=== PATIENT | male | born 1955 | race Caucasian/White ===

== ENCOUNTER 2019-04-05 18:23 | Observation (INO) ==
--- NOTE | 2019-04-05 18:42 | Emergency Department Note ---
Disposition Clinical Impression: Chest pain Qualifiers: Chest pain type: unspecified Qualified Code(s): R07.9 - Chest pain, unspecified Disposition: Admitted As Inpatient Condition: Good Time of Disposition: 18:44 General Adult HPI - General Stated complaint: cp Time Seen by Provider: 04/05/19 18:30 Source: patient Mode of arrival: ambulatory Limitations: no limitations Nursing Notes Reviewed: Yes Vital Signs Reviewed: Yes - History of Present Illness HPI Narrative: Patient presenting to the hospital for evaluation of left-sided chest pain. Patient describes a left-sided dull ache that started approximately an hour and half prior to arrival while sitting in a recliner. Patient states he has had intermittent chest pains of been sharp and always gone away with no previous diagnosis. Patient's chest pain today is different than prior. Nothing has mad e it better or worse. Patient described tongue numbness but no other symptoms and this last for seconds. The patient was recently diagnosed with diabetes today and was prescribed metformin but has not picked this up from the pharmacy. Patient states he has been taking terbinafine for "toe fungus". Patient has not been diagnosed with hypertension or hypercholesterol or other. Patient states he underwent a stress test many years ago which was negative but has not had any recent workup or testing. Patient has a moderate story, nonspecific ST changes, 1-2 risk factors and likely initial negative troponin putting him at a heart score of 5. Patient will require admission for further workup and testing. - Related Data Home Medications Medication Instructions Recorded Confirmed Multivitamin [Multivitamins] 1 each PO DAILY 04/05/19 04/05/19 Terbinafine HCl 250 mg PO DAILY 04/05/19 04/05/19 Previous Rx's Medication Instructions Recorded Aspirin Enteric Coated [Aspirin EC] 81 mg PO DAILY #30 tablet. 04/06/19 Atorvastatin Calcium [Lipitor] 20 mg PO HS #30 tablet 04/06/19 Metoprolol [Lopressor] 25 mg PO BID #60 tablet 04/06/19 Allergies Allergy/AdvReac Type Severity Reaction Status Date / Time No Known Allergies Allergy Verified 04/05/19 19:50 Review of Systems: CONSTITUTIONAL: No weight loss, fever, chills, weakness or fatigue. HEENT: Eyes: No visual changes. Ears, Nose, Throat: Tongue numbness No hearing loss, difficulty talking or unable to swallow. SKIN: No rash or itching. CARDIOVASCULAR: Chest pain RESPIRATORY: No shortness of breath, cough or sputum. GASTROINTESTINAL: No anorexia, nausea, vomiting or diarrhea. No abdominal pain or blood. GENITOURINARY: No burning on urination or hematuria. NEUROLOGICAL: No headache, dizziness, syncope, paralysis, ataxia, numbness or tingling in the extremities. No change in bowel or bladder control. MUSCULOSKELETAL: No muscle pain, back pain, joint pain or stiffness. Physical Exam General: Well appearing, nontoxic, no acute distress Head: Normocephalic Atraumatic Eyes: PERRL, EOMI ENT: Airway patent, no stridor Neck: supple, no meningismus Chest: Lungs clear to auscultation bilateral Cardiac: Regular rate and rhythm, no murmurs, rubs or gallops Abdomen: soft, nontender, nondistended; no guarding, rebound, or tenderness to percussion Musculoskeletal: Calves symmetric, nontender. Skin: No rash, normal skin tone. Neuro: Alert and Oriented to person, place, and time; No obvious focal deficit. Course - Reevaluation(s) Reevaluation #1: Patient is chest pain-free after 2 hours of observation with the emergency department. Aspirin given. Patient with slightly atypical symptoms but heart score of 5. Patient will be admitted for serial troponin and likely stress test. Vital Signs Temperature 98.2 F 04/05/19 18:34 Pulse Rate 79 04/05/19 18:34 Respiratory Rate 18 04/05/19 18:34 Blood Pressure 179/110 04/05/19 18:34 O2 Sat by Pulse Oximetry 100 04/05/19 18:34 Temperature 97.9 F 04/06/19 11:49 Pulse Rate 71 04/06/19 11:49 Respiratory Rate 14 04/06/19 11:49 Blood Pressure 169/94 04/06/19 11:49 O2 Sat by Pulse Oximetry 96 04/06/19 11:49 Oxygen Delivery Oxygen Delivery Room Air Medical Decision Making - Medical Records Medical records reviewed: Yes I reviewed the patient's medical records. - Lab Data Lab results reviewed: Yes I reviewed the patient's lab results. Result diagrams: 04/06/19 09:57 04/06/19 09:57 Lab Results 04/05/19 04/05/19 Range/Units 19:35 19:35 WBC 7.2 (4.3-11.1) K/mcL RBC 5.53 H (4.19-5.50) M/mcL Hgb 14.5 (12.9-16.9) g/dL Hct 45.8 (37.5-50.1) % MCV 82.8 L (83.0-100.0) fL MCH 26.2 L (28.0-33.3) pg MCHC 31.7 (31.6-35.5) g/dL RDW 13.4 (11.5-14.5) % Plt Count 204 (140-400) K/mcL MPV 9.4 (9.4-12.4) fL Immature Gran % 0.3 (0-4) % Seg Neutrophils % 77.8 % Lymphocytes % 12.0 % Monocytes % 8.8 % Eosinophils % 0.8 % Basophils % 0.3 % Neutrophils # 5.6 (1.6-8.9) K/mcL Lymphocytes # 0.9 (0.6-4.6) K/mcL Monocytes # 0.6 (0.0-1.3) K/mcL Eosinophils # 0.1 (0.0-0.6) K/mcL Basophils # 0.0 (0.0-0.2) K/mcL Sodium 138 (136-145) mEq/L Potassium 4.2 (3.5-5.1) mEq/L Chloride 105 (98-107) mEq/L Carbon Dioxide 26 (23-29) mEq/L BUN 17 (8-23) mg/dL Creatinine 1.16 (0.70-1.30) mg/dL Est GFR ( Amer) > 60 (> 60) Est GFR (Non-Af Amer) > 60 (> 60) BUN/Creatinine Ratio 15 (6-26) Glucose 104 (70-105) mg/dL Calculated Osmolality 288 (280-300) Calcium 9.1 (8.6-10.3) mg/dL Troponin I < 0.03 (< 0.04) ng/mL - Radiology Data Radiology results reviewed: Yes I reviewed the patient's radiology results. - EKG Data EKG #1 EKG attestation: Yes I reviewed and interpreted this EKG. EKG results narrative: EKG shows sinus rhythm with a heart rate of 73 NV 160 QRS [address] elevations or depressions. Mild T-wave flattening in aVL and lead 3. No old EKG for comparison.
[2019-04-05 19:57] LABS: Basophils % 0.3 %; Eosinophils # 0.1 K/mcL (0.0-0.6); Eosinophils % 0.8 %; Hematocrit 45.8 % (37.5-50.1); Hemoglobin 14.5 g/dL (12.9-16.9); Immature Granulocytes % 0.3 % (0-4); Lymphocytes # 0.9 K/mcL (0.6-4.6); Mean Corpuscular HGB Conc 31.7 g/dL (31.6-35.5); Mean Corpuscular Hemoglobin 26.2 pg (28.0-33.3); Mean Corpuscular Volume 82.8 fL (83.0-100.0); Mean Platelet Volume 9.4 fL (9.4-12.4); Monocytes # 0.6 K/mcL (0.0-1.3); Monocytes % 8.8 %; Neutrophils # 5.6 K/mcL (1.6-8.9); Platelet Count 204 K/mcL (140-400); Red Blood Count 5.53 M/mcL (4.19-5.50); Red Cell Distribution Width 13.4 % (11.5-14.5); Segmented Neutrophils % 77.8 %; White Blood Count 7.2 K/mcL (4.3-11.1)
[2019-04-05 20:19] LABS: BUN/Creatinine Ratio 15 (6-26); Blood Urea Nitrogen 17 mg/dL (8-23); Calcium 9.1 mg/dL (8.6-10.3); Carbon Dioxide 26 mEq/L (23-29); Chloride 105 mEq/L (98-107); Glucose 104 mg/dL (70-105); Osmolality,Calculated 288 (280-300); Potassium 4.2 mEq/L (3.5-5.1); Sodium 138 mEq/L (136-145); Troponin I < 0.03 ng/mL (< 0.04); eGFR For African Americans > 60 (> 60); eGFR For Non-African Americans > 60 (> 60)
[2019-04-05] MEDS ORDERED: Aspirin 81 MG TAB.CHEW PO STA (20:24)
[2019-04-05] MEDS ORDERED: Naloxone 0.4 MG/ML INJ IVP PRN (22:25)
[2019-04-05] MEDS ORDERED: *HR* Dextrose 50 % in Water (Syg) 50 ML SYRINGE IVP PRN (22:25)
[2019-04-05] MEDS ORDERED: Dextrose Gel 15 GM/37.5 ML TUBE PO PRN ×2 (22:25)
[2019-04-05] MEDS ORDERED: D5% in Water 1,000 ML IVC PRN (22:46)
--- NOTE | 2019-04-05 22:53 | Internal Med History&Physical ---
Date of Encounter: 04/05/19 Time of Encounter: 20:54 Internal Medicine - H&P: HPI Chief complaint: Chest pain Admitted From: Emergency Dept Plans for Post Hospital Care: Home History of present illness: Mr. Valentin is a 63 year old male Patient presented to the emergency room with several hour history of chest pain. He was sitting on his couch, leaned over to grab his eye pad when he began having left-sided chest discomfort. Lasted about 1.5 hours before he decided to try taking a baby aspirin. He had never had chest pain like this before. Worried that it could be cardiac in nature, he decided to come to the emergency room for further evaluation. In the emergency room patient's vital signs were within normal limits with the exception of a blood pressure of 179/110. This improved without intervention. CBC, BMP within normal limits Initial troponin undetectable EKG: Normal sinus rhythm QTC of 447. No ischemic changes Chest x-ray showed no evidence of acute cardiopulmonary disease Patient was given a 324 mg dose of aspirin, and was admitted to the hospital for further management. He is chest pain-free. Upon my evaluation, patient is resting comfortably in the ER bed in no acute distress. He denies chest pain, abdominal pain, nausea, vomiting, diarrhea, constipation, jaw and neck pain and arm pain. He states that he was recently diagnosed with diabetes and was started on metformin but he has yet to hand picker the prescription. He also has a history of toe fungus and is on terbinafine which she has been taking for 1 week. He denies significant family medical history including cardiac disease and diabetes. He thinks his mother had a gastric cancer however. Patient is a full code. Past Med Surg Social Fam HX - Past Medical History Medical history: diabetes Additional medical history: toe fungus Psychiatric history: no psych history - Past Surgical History Surgical History: no surgical history - Social History Smoking Status: Never smoker Smokeless Tobacco Status: No Alcohol use: none Drug use: none - Family History Maternal Grandfather Hx Family Cancer: Yes (lung) Mother Hx Family Cancer: Yes (stomach) Internal Medicine - H&P: Meds Multivitamin [Multivitamins] 1 each PO DAILY 04/05/19 [History] Terbinafine HCl 250 mg PO DAILY 04/05/19 [History] Allergy/AdvReac Type Severity Reaction Status Date / Time No Known Allergies Allergy Verified 04/05/19 19:50 All Systems PM: A 10-system review of systems was performed and is negative for pertinent findings except as documented above in the HPI. - Constitutional Vitals: Temp Pulse Resp BP Pulse Ox 98.5 F 72 17 168/89 96 04/05/19 22:03 04/05/19 22:03 04/05/19 22:03 04/05/19 22:03 04/05/19 22:03 General appearance: Present: cooperative, A&O X 3, pleasant, no acute distress, answers questions appropriately Exam: - - Head Head exam: Present: normal inspection - Eye Eye exam: Present: EOMI, normal appearance - Respiratory Respiratory exam: Present: CTAB. Absent: rales, respiratory distress, rhonchi, wheezes - Cardiovascular Cardiovascular exam: Present: RRR. Absent: diastolic murmur, systolic murmur - GI/Abdominal GI/Abdominal exam: Present: normal bowel sounds, soft. Absent: tenderness - Extremities Exam Extremities exam: Present: warm, radial pulses palpable and symmetrical. Absent: calf tenderness, pedal edema, tenderness - Neurological Exam Neurological exam: Present: no focal deficits, strengths equal and symetr throughout. Absent: motor sensory deficit, facial droop, speech deficit - Skin Skin exam: Present: dry, normal color, warm Additional comments: Great toes bilaterally have dark discoloration of the toe nails, with thickening Internal Med - H&P Results - Labs CBC & Chem 7: 04/05/19 19:35 04/05/19 19:35 Labs: Short CBC 04/05/19 Range/Units 19:35 WBC 7.2 (4.3-11.1) K/mcL Hgb 14.5 (12.9-16.9) g/dL Hct 45.8 (37.5-50.1) % Plt Count 204 (140-400) K/mcL Neutrophils # 5.6 (1.6-8.9) K/mcL BMP 04/05/19 19:35 Sodium 138 Potassium 4.2 Chloride 105 Carbon Dioxide 26 BUN 17 Creatinine 1.16 Glucose 104 Calcium 9.1 Cardiac Enzymes 04/05/19 Range/Units 19:35 Troponin I < 0.03 (< 0.04) ng/mL - Impressions ITS Impressions Chest X-Ray 04/05/19 18:30 IMPRESSION: No evidence of acute cardiopulmonary disease. D/ / Manohar Frederick MD / Manohar Frederick MD Interpreting Provider: Manohar Frederick MD - Assessment and Plan (1) Chest pain Current Visit: Yes Status: Acute Assessment and plan: Patient's chest pain has now resolved. Workup including troponin, EKG and chest x-ray within normal limits. Patient has never had a cardiac workup before. He denies family history of cardiac disease as well. Cardiac monitoring Continue to trend troponin Echocardiogram in the morning Stress test in the morning Qualifiers: Chest pain type: unspecified Qualified Code(s): R07.9 - Chest pain, unspecified (2) Diabetes Current Visit: Yes Status: Acute Assessment and plan: Patient is not an insulin dependent diabetic Monitor sugars every 6 hours Nothing by mouth after midnight Low dose insulin sliding scale as needed Hold home meds. Qualifiers: Diabetes mellitus type: type 2 Diabetes mellitus senior care insulin use: without senior care use Diabetes mellitus complication status: without complication Qualified Code(s): E11.9 - Type 2 diabetes mellitus without complications (3) Toenail fungus Current Visit: Yes Status: Acute Assessment and plan: Patient started on terbinafine outpatient. Continue terbinafine while in the hospital (4) DVT prophylaxis Current Visit: Yes Status: Acute Assessment and plan: Subcutaneous heparin - Time Spent With Patient Total time spent is greater than 50% in coordination of care (as documented) at patient's floor/unit and/or counseling patient: Greater than 35 minutes
[2019-04-06] MEDS: Insulin LISPRO 300 UNITS/3 ML VIAL SQ SCH ×3 (01:13→12:27)
[2019-04-06] MEDS ORDERED: Regadenoson 0.4 MG/5 ML SYRINGE IVP ONE (05:46)
[2019-04-06] MEDS ORDERED: *HR* Heparin 5,000 UNIT/ML VIAL SQ SCH (06:00)
[2019-04-06] MEDS ORDERED: Perflutren Lipid Microsphere 1.3 ML in 0.9 % Sodium Chloride 8.7 ML IVP ONE (07:42)
[2019-04-06] MEDS ORDERED: (Terbinafine Hcl 250 MG) PO SCH (09:00)
[2019-04-06 10:15] LABS: Hematocrit 45.1 % (37.5-50.1); Hemoglobin 14.5 g/dL (12.9-16.9); Mean Corpuscular HGB Conc 32.2 g/dL (31.6-35.5); Mean Corpuscular Hemoglobin 26.9 pg (28.0-33.3); Mean Corpuscular Volume 83.7 fL (83.0-100.0); Mean Platelet Volume 9.3 fL (9.4-12.4); Platelet Count 199 K/mcL (140-400); Red Blood Count 5.39 M/mcL (4.19-5.50); Red Cell Distribution Width 13.4 % (11.5-14.5); White Blood Count 7.4 K/mcL (4.3-11.1)
--- NOTE | 2019-04-06 10:33 | Electrocardiograph Report ---
[place] [id number] Test Date: 2019-04-05 Pat Name: Fabien Valentin Department: EXAM9 Room: 3B24 Gender: M Machine Worker: : 1955 Requested By: William Beck Order Number: [id number] Reading MD: Beba Ojeda Measurements Intervals [place] Rate: 73 P: 29 MD: 168 QRS: -20 QRSD: 93 T: 47 QT: 405 QTc: 447 Interpretive Statements Sinus rhythm Borderline left axis deviation Electronically Signed On 04-06-2019 10:31:57 EDT by Beba Ojeda
[2019-04-06 10:42] LABS: BUN/Creatinine Ratio 16 (6-26); Blood Urea Nitrogen 16 mg/dL (8-23); Calcium 8.7 mg/dL (8.6-10.3); Carbon Dioxide 20 mEq/L (23-29); Chloride 107 mEq/L (98-107); Chol/HDL Ratio 4.1 (0-4.9); Cholesterol 181 mg/dL (< 200); Glucose 153 mg/dL (70-105); HDL Cholesterol 44 mg/dL (40-59); LDL Cholesterol,Calculated 113 mg/dL (0-99); Osmolality,Calculated 288 (280-300); Potassium 4.1 mEq/L (3.5-5.1); Sodium 137 mEq/L (136-145); Triglycerides 118 mg/dL (< 150); eGFR For African Americans > 60 (> 60); eGFR For Non-African Americans > 60 (> 60)
[2019-04-06 11:57] VITALS: BP 169/94
--- NOTE | 2019-04-06 15:59 | Discharge Summary ---
- NOTES TO OUTPATIENT PROVIDER Notes to Outpatient Provider: f/u with PCP in one week. Orders not resulted at time of discharge: Pending orders 04/05/19 23:15 NM brody perf SPECT multi [NM] Routine Date of Encounter: 04/06/19 Time of Encounter: 15:53 - Discharge Diagnosis (1) Chest pain Priority: Primary Status: Acute Qualifiers: Chest pain type: unspecified Qualified Code(s): R07.9 - Chest pain, unspecified (2) Diabetes Priority: Secondary Status: Acute Qualifiers: Diabetes mellitus type: type 2 Diabetes mellitus half-way insulin use: without half-way use Diabetes mellitus complication status: without complication Qualified Code(s): E11.9 - Type 2 diabetes mellitus without complications (3) DVT prophylaxis Priority: Secondary Status: Acute (4) Toenail fungus Priority: Secondary Status: Acute Hospital course: Mr. Valentin is a 63 year old male with known past medical history of diabetes type II patient presented to ER with chest pain since yesterday. He was sitting on his couch, leaned over to grab his eye pad when he began having left-sided chest discomfort. Lasted about 1.5 hours before he decided to try taking a baby aspirin. He had never had chest pain like this before. Worried that it could be cardiac in nature, he decided to come to the emergency room for further evaluation. In the ER his initial troponin was negative and chest x-ray did not show any infiltrates / consolidations. 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 His serial troponin came back as negative. Since she is high risk for ACS she did go for nuclear stress test which came back as negative for ischemia/infarction. He does have slightly elevated LDL @ 113 so started him on Aspirin and Lipitor. Also he does have elevated BP so started him on Metoprolol 25mg PO BID - Time Spent with Patient Total time spent providing and/or coordinating discharge services: - Discharge Medications Prescriptions: New Aspirin Enteric Coated [Aspirin EC] 81 mg PO DAILY #30 tablet. Atorvastatin Calcium [Lipitor] 20 mg PO HS #30 tablet Continued Terbinafine HCl 250 mg PO DAILY Multivitamin [Multivitamins] 1 each PO DAILY Home Medications: Multivitamin [Multivitamins] 1 each PO DAILY 04/05/19 [History] Terbinafine HCl 250 mg PO DAILY 04/05/19 [History] Aspirin Enteric Coated [Aspirin EC] 81 mg PO DAILY #30 tablet. 04/06/19 [Rx] Atorvastatin Calcium [Lipitor] 20 mg PO HS #30 tablet 04/06/19 [Rx] Allergies/Adverse Reactions: Allergy/AdvReac Type Severity Reaction Status Date / Time No Known Allergies Allergy Verified 04/05/19 19:50 Date of admission: 04/05/19 20:53 Primary care physician: Marry Howell CNP - Constitutional Vitals: Temp Pulse Resp BP Pulse Ox 97.9 F 71 14 169/94 96 04/06/19 11:49 04/06/19 11:49 04/06/19 11:49 04/06/19 11:49 04/06/19 11:49 General appearance: Present: cooperative, A&O X 3, pleasant, no acute distress, answers questions appropriately Exam: Gen: Alert, awake, Oriented to time,place and person Chest: Diminished breath sounds B/L, No wheezing, No crackles, No rales Heart: S1S2+ RRR No murmurs Abd: Soft, NT, BS +, No organomegaly Ext: No edema, pulses are palpable, No calf tenderness Neuro : No acute focal neuro deficits noticed Skin: No rash. - Patient Status Disposition: Home, Self-Care Condition: Good Overall status at discharge: patient is back to baseline - Discharge Instructions Follow Up With: Marry Howell CNP [Primary Care Provider] - (Appointment has been requested.) Forms: ED Satisfaction Letter - Diet and Activity Activity: increase activity as tolerated
== END 2019-04-06 16:31 | disposition home or self-care (01) ==
LOC: 3BNU 18:23 → EMEROOARM 18:23 → 3BNU 21:36
PROVIDERS: ADMIT Family Medicine; ATTEND Family Medicine